=== PATIENT | male | born 1955 | race Caucasian/White ===

== ENCOUNTER → 2018-08-12 08:28 | Outpatient (CLI) | payer OTHER, SELFPAY | PROVIDERS: Visit Provider Urology | DX: R97.20 Elevated prostate specific antigen [PSA] (principal) | CPT/HCPCS: 36415; 84153 ==

== ENCOUNTER → 2019-07-24 14:36 | Outpatient (CLI) | payer MEDICARE, OTHER, SELFPAY ==
[2019-07-24 15:53] LABS: Prostate Specific Antigen 3.24 ng/mL (0.10-4.00)
== END ==
PROVIDERS: Visit Provider Urology
DX: N42.31 Prostatic intraepithelial neoplasia (principal); R97.20 Elevated prostate specific antigen [PSA]; N40.1 Benign prostatic hyperplasia with lower urinary tract symptoms
CPT/HCPCS: 36415; 84153

== ENCOUNTER → 2021-06-10 09:51 | Outpatient (CLI) | payer MEDICARE, OTHER, SELFPAY ==
--- NOTE | 2021-06-10 | DI.RAD.S_ITS ---
PROCEDURE: XR CHEST 2V INDICATIONS: CHEST PAIN TECHNIQUE: 2 views of the chest were acquired. COMPARISON: [facility], , CHEST 1 VIEW, 04/20/2013, 8:11. FINDINGS: Surgical changes and devices: None. Lungs and pleura: Lungs are clear. No pleural effusions or pneumothorax. Mediastinum: Mediastinal contours are normal. Heart size is normal. Bones and chest wall: No suspicious bony abnormalities. Soft tissues appear unremarkable. IMPRESSION: No acute cardiopulmonary disease. Dictated by: Everett Waldron M.D. on 06/10/2021 at 11:55 Approved by: Everett Waldron M.D. on 06/10/2021 at 11:56
== END ==
PROVIDERS: PCP Family Medicine; Referring Provider Family Medicine; Visit Provider Family Medicine
DX: R07.9 Chest pain, unspecified (principal)
CPT/HCPCS: 71046

== ENCOUNTER → 2021-07-11 08:23 | Outpatient (CLI) | payer MEDICARE, OTHER, SELFPAY ==
[2021-07-11 12:18] LABS: COVID19 -Nasal RAPID Negative (Negative)
== END ==
PROVIDERS: PCP Family Medicine; Visit Provider Physician Assistant
DX: Z01.812 Encounter for preprocedural laboratory examination (principal); Z20.822 Contact with and (suspected) exposure to COVID-19
CPT/HCPCS: 87635; C9803

== ENCOUNTER → 2021-07-12 08:59 | Outpatient (CLI) | payer MEDICARE, OTHER, SELFPAY ==
--- NOTE | 2021-07-13 05:11 | DI.NM.S_ITS ---
PROCEDURE PERFORMED: Exercise treadmill stress and rest myocardial perfusion imaging with gating to assess ejection fraction and regional wall motion. DATE OF SERVICE: July 12, 2021 ORDERING PROVIDER: Kamron Aj MD INDICATIONS: The patient is a 66-year-old male with atypical chest discomfort. CARDIAC STRESS: The patient was able to exercise for a total of 7 minutes 31 seconds on a standard Shivam protocol suggesting average exercise capacity with an TONEY of -1%. He had a normal heart rate and blood pressure response to exercise, achieving a maximum heart rate of 150 BPM (98% of his predicted maximum). He had no chest discomfort or other anginal symptoms. His resting ECG is normal and there are no ST-segment shifts to suggest ischemia. He had no arrhythmias. At 6 minutes of exercise at a heart rate of 140 BPM, 25.9 millicuries of technetium-99m Myoview was injected and he was imaged 20 minutes later using a gated SPECT acquisition protocol. Earlier in the day while at rest, he was injected with 12.3 millicuries of technetium-99m Myoview and was imaged 20 minutes later, again using a gated SPECT acquisition protocol. FINDINGS: RAW DATA: There is fairly good myocardial tracer uptake. Lung/heart ratio is normal at 0.27 with a normal TID ratio of 1.00. QUANTITATED GATED SPECT: Post-stress ejection fraction is estimated at 68% without any focal wall motion abnormality. Resting ejection fraction is estimated at 70% with a normal resting end-diastolic volume of 104 mL. MYOCARDIAL PERFUSION IMAGING: Post-stress supine images show a normal myocardial perfusion pattern without any perfusion defects, supported by normal perfusion imaging in the prone position. The resting images show an identical perfusion pattern without any areas of improvement. IMPRESSION: 1. Normal myocardial perfusion study. 2. No evidence of myocardial ischemia or previous myocardial infarction. 3. Normal left ventricular systolic function without any focal wall motion abnormality. 4. Average exercise capacity without angina or ECG evidence of ischemia. Javier Alex - WINNIE/myles/margo doc#: [id number]/job#: [id number] dd: 07/12/2021 17:31:00 dt: 07/13/2021 04:49:00 DICTATING MD/COPIES TO: Kamron Li MD; Kamron Aj MD COPIES MNE: FABIANA;
== END ==
PROVIDERS: PCP Family Medicine; Referring Provider Family Medicine; Visit Provider Family Medicine
DX: R07.89 Other chest pain (principal)
CPT/HCPCS: 78452; 93017; A9502

== ENCOUNTER → 2021-10-10 09:10 | Outpatient (CLI) | payer MEDICARE, OTHER, SELFPAY ==
[2021-10-10 12:43] LABS: COVID19 -Nasal RAPID Negative (Negative)
== END ==
PROVIDERS: PCP Family Medicine; Visit Provider Physician Assistant
DX: Z01.812 Encounter for preprocedural laboratory examination (principal); Z20.822 Contact with and (suspected) exposure to COVID-19
CPT/HCPCS: 87635

== ENCOUNTER 2021-10-11 07:56 | Day surgery (SDC) | payer MEDICARE, OTHER, SELFPAY ==
--- NOTE | 2021-10-11 | PATH_ITS ---
[facility] Accession Number: [id number] . 01 Material submitted: . rectosigmoid junction - RECTOSIGMOID POLYP . 02 Diagnosis: Rectosigmoid Polyp: Tubular adenoma. MRV 10/13/2021 1202 Local . 02 Electronically signed: . Radha Mendez MD, Pathologist NPI- [id number] . 01 Gross description: . The specimen is received in formalin, labeled polyp rectosigmoid and consists of a 0.6 x 0.5 x 0.3 cm alfonso-pink fragment soft tissue, which is entirely submitted in cassette A1. ([id number]) /MRV 10/12/2021 1230 Local . 02 Pathologist provided ICD-10: Z12.11, K63.5 . 02 CPT . 868644 Performed at: 01 [facility] [address], [place], [place] [id number] MD Andrew Fernandes MD Phone: [phone] Performed at: [address] [facility] [address] [place], [place] [id number] MD Marguerite Cueva MD Phone: [phone]
[2021-10-11 07:34] VITALS: BP 166/92; PULSE 86; RESP 14; TEMP 36.9; O2SAT 100; BMI 23.6
[2021-10-11] MEDS: SODIUM CHLORIDE 0.9% 1,000 ML 84 ML IV (07:44)
--- NOTE | 2021-10-11 07:57 | PM.HP.1 ---
History of Present Illness History of Present Illness Date Patient Seen: 10/11/21 Time Patient Seen: 07:57 Chief complaint: SDC Narrative: Asymptomatic screening Patient History Family & Social History Social History: household members spouse Tobacco & Substance use: Smoking Status Former smoker alcohol intake never Substance Use Type does not use Meds Home Medications and Allergies Home Medications Medication Instructions Recorded Confirmed Type dutasteride 0.5 mg-tamsulosin ER 1 cap PO QDAY #0 05/21/13 10/11/21 History 0.4 mg capsule ext.release 24hr mphas (Chloe) Allergies Allergy/AdvReac Type Severity Reaction Status Date / Time No Known Drug Allergies Allergy Verified 10/11/21 07:52 Review of Systems Review of Systems ROS: Yes All systems reviewed with the patient and are negative except as otherwise documented Exam Vital Signs (past 8 hours): - 10/11/21 07:34 Temperature 98.4 F Pulse Rate 86 Respiratory Rate 14 Blood Pressure 166/92 H Pulse Oximetry 100 Oxygen Delivery Method Room Air Const General: cooperative and comfortable Orientation: alert HENMT Head: normocephalic Ears: external ears normal Nose: external nose normal Face and sinus: normal facial exam Mouth: oral mucosae normal Eyes General: appearance normal, both eyes and all related structures Neck Neck: normal visual inspection Chest Chest: normal inspection of the chest Resp Effort & Inspection: normal respiratory effort Cardio Rate: regular rate GI Inspection: normal to inspection Palpation: tender Skin General: no rashes or lesions noted and No jaundice Neuro General: patient alert and moves all extremities Cognition: normal cognition Speech: speech normal Extrem General: normal to inspection Psych Appearance: grossly normal Assessment & Plan Assessment & Plan narrative: 66-year-old indicated for colon cancer screening. Colonoscopy is planned for today. Time Spent With Patient Critical Care time: I spent a total of [] minutes of critical care time on this patient's care today; this time is exclusive of procedural time.
--- NOTE | 2021-10-11 07:59 | PM.PREOP ---
Pre-operative Note COVID-19 COVID-19 status: Negative Result date/Date tested (Pos, Neg/Pending): 10/10/21 Interval Note History & Physical reviewed/Exam performed by Physician: Yes Changes to H&P: No ASA Class (for procedural sedation): II
[2021-10-11 08:28] VITALS: BP 131/85; PULSE 83; RESP 14; TEMP 36.6; O2SAT 98
--- NOTE | 2021-10-11 08:28 | PM.OP.COLON ---
Operative Date/Time/Diagnoses Date of procedure: 10/11/21 Time of procedure: 08:28 Pre-op diagnosis: Screening Post-op diagnosis: same Procedure & Clinicians Study performed: Colonoscopy with hot snare polypectomy Same procedure as scheduled: Yes Indications: Colon cancer screening Surgeon: Conrad Varma Procedure Notes SCOAP/Timeout: Done Procedure in detail: After the risks and benefits were explained, written and verbal informed consent was obtained. The patient was brought into the procedure room and placed into the left lateral decubitus position. Please see nurse cork insulation setter sedation notes. Digital rectal examination was accomplished. The scope was introduced into the patient and advanced under direct visualization to the cecum as identified by the appendiceal orifice and ileocecal valve. The scope was slowly withdrawn to carefully examine the mucosa for any defects or lesions. Comprehensive imaging was accomplished throughout the rectum including the dentate line. The colon was decompressed, the scope was then removed from the patient who tolerated the procedure well. Bowel prep adequate Adult colonoscope Scope withdrawal time: 11 minutes Sedation minutes: 25 Complications: none Impression: Diverticulosis was scattered throughout the sigmoid. In the region of the rectosigmoid junction there was semi pedunculated 8 mm polyp removed with hot snare no other significant pathology was appreciated throughout. Endoscopic diagnosis 1. Colon polyp 2. Diverticulosis Post-procedure Recommendations: Colonoscopy in 5 years Plan for aftercare: 1. Await histopathology 2. Repeat colonoscopy 5 years Disposition: PACU
[2021-10-11 08:33] VITALS: BP 125/86; PULSE 89; RESP 15; O2SAT 100
[2021-10-11 08:37] VITALS: BP 140/92; PULSE 76; RESP 15; O2SAT 100
[2021-10-11 08:45] VITALS: BP 137/91; PULSE 74; RESP 14; TEMP 36.3; O2SAT 99
[2021-10-11 08:52] VITALS: BP 132/83; PULSE 74; RESP 14; O2SAT 100
--- NOTE | 2021-10-11 08:54 | SUR.PHASEII ---
VSS, pt verbalized understanding of d/c instructions, transported to er entrance via wheelchair in stable condition.
== END 2021-10-11 09:00 | disposition home or self-care (01) ==
PROVIDERS: PCP Family Medicine; Referring Provider Internal Medicine Gastroenterology; Visit Provider Internal Medicine Gastroenterology
PROC: 0DJD8ZZ Inspection of Lower Intestinal Tract, Via Natural or Artificial Opening Endoscopic (ICD-10-PCS; CPT 45378; principal; 2021-10-11 08:00)
DX: Z12.11 Encounter for screening for malignant neoplasm of colon (principal); K57.30 Diverticulosis of large intestine without perforation or abscess without bleeding; D12.5 Benign neoplasm of sigmoid colon
CPT/HCPCS: 45385; J2405; J2704

== ENCOUNTER → 2022-07-17 10:21 | Outpatient (CLI) | payer MEDICARE, OTHER, SELFPAY ==
--- NOTE | 2022-07-17 | DI.RAD.S_ITS ---
PROCEDURE: XR SHOULDER RT MIN 2V INDICATIONS: PAIN IN RIGHT SHOULDER TECHNIQUE: 3 views of the shoulder were acquired. COMPARISON: None. FINDINGS: Bones: Degenerative changes of the right acromioclavicular joint. No fractures or dislocations. No suspicious bony lesions. Visualized ribs appear intact. Soft tissues: No suspicious soft tissue calcifications. IMPRESSION: 1. No acute abnormality. 2. Degenerative changes of the right acromioclavicular joint. Dictated by: Laci Torres M.D. on 07/17/2022 at 12:21 Approved by: Laci Torres M.D. on 07/17/2022 at 12:22
== END ==
PROVIDERS: PCP Family Medicine; Referring Provider Family Medicine; Visit Provider Family Medicine
DX: M25.511 Pain in right shoulder (principal)
CPT/HCPCS: 73030

== ENCOUNTER → 2024-07-15 | Outpatient (CLI) | payer MEDICARE, OTHER, SELFPAY ==
--- NOTE | 2024-07-15 18:33 | DI.MRI.S_ITS ---
PROCEDURE: MR STROKE Pre- and post-contrast brain MRI, non-contrast brain MR angiogram, pre- and postcontrast neck MR angiogram INDICATIONS: ATAXIA TECHNIQUE: Brain: Noncontrast axial T1 spin echo, axial T2 fast spin echo, sagittal and axial FLAIR, coronal T2 fast spin echo, axial gradient echo, axial diffusion and ADC through the brain. After the administration of contrast, axial 3D VIBE of the cranial vasculature and brain. Brain MRA: Non-contrast 3-D time of flight MR angiogram, with multiple binrwhm-luaznsjpr-dputptabbh (MIP) reformats performed. Neck MRA: Axial and sagittal TruFISP through the neck. Coronal dynamic MR angiogram during administration of contrast in the arterial and venous phases, with 3-dimenstional dqriffm-kwnndbvsi-kfcseorztf (MIP) reformats constructed from subtraction images. COMPARISON: None. FINDINGS: Image quality: Excellent. BRAIN: CSF spaces: Ventricles are symmetric, yet prominent in size.. Basal cisterns are patent. No extra-axial fluid collections. Brain: No intracranial bleeds or mass effects. Summers-white matter interface is normal. Diffusion weighted images show no acute infarct. Brainstem appears normal. Normal intravascular flow voids are present. No abnormal intracranial enhancement. Skull and face: Calvarial marrow signal is normal. Orbits appear normal. Sinuses: There is a mucous retention cyst seen within the left maxillary sinus. Cvkt-zu-awgsuecu scattered mucosal thickening can be seen within the paranasal sinuses. No abnormal fluid is seen within the mastoid air cells. BRAIN MR ANGIOGRAM: Anterior circulation: Intracranial internal carotid arteries are normal in size and flow. There is a hypoplastic right A1 segment, with a corresponding robust left A1 segment. This is considered to be a normal developmental variant of the [place], of typically no clinical consequence. The flow within the paired anterior cerebral arteries is otherwise normal and symmetric. The flow within the middle cerebral arteries is normal and symmetric. The anterior communicating artery is seen. No aneurysms are seen. Posterior circulation: Note is made of bilateral type origins of the posterior cerebral arteries, with an associated diminutive basilar artery. The flow within the posterior cerebral arteries is normal and symmetric. The distal vertebral arteries are overall small in size, yet otherwise unremarkable. No aneurysms are seen. NECK MR ANGIOGRAM: Carotids: Incidental note is made of a common origin of the right brachiocephalic artery and the left common carotid artery (bovine type arch). This is considered to be a developmental variant of no clinical consequence. The origins of the common carotid arteries appear patent. The calibers and courses of both common carotid arteries are normal. The bifurcation regions appear normal bilaterally. The internal carotid arteries demonstrate normal course. The internal carotid arteries demonstrate tortuosity. Posterior circulation: The origins of the vertebral arteries appear patent. More superior portions of both vertebral arteries demonstrate normal course and caliber, and join to form a normal appearing basilar artery. Miscellaneous: Subclavian arteries appear patent. Pre-contrast images through the neck show no soft tissue abnormalities. IMPRESSION: BRAIN MRI: Prominent lateral ventricles are seen, which are larger than would be expected, given the degree of sulcal atrophy. Please consider normal pressure hydrocephalus. No masses or abnormal enhancement can be seen. No findings of acute or subacute infarction can be seen. No prior territorial infarct can be seen. BRAIN MR ANGIOGRAM: No significant intracranial arterial abnormality is seen. Ibseoo-oj-Mgznmu developmental anomalies are incidentally noted. NECK MR ANGIOGRAM: Within the arteries of the neck, no hemodynamically significant stenosis can be seen. Note is made of tortuosity of the internal carotid arteries. Bowing type aortic arch branching pattern incidentally noted. Dictated by: William Mondragon M.D. on 07/16/2024 at 9:36 Approved by: William Mondragon M.D. on 07/16/2024 at 9:40
== END ==
LOC: MRI 18:32
PROVIDERS: PCP Family Medicine; Referring Provider Family Medicine; Visit Provider Family Medicine
DX: R27.0 Ataxia, unspecified (principal)
CPT/HCPCS: 70544; 70549; 70553; A9579

== ENCOUNTER → 2024-10-08 07:53 | Outpatient (CLI) | payer MEDICARE, OTHER, SELFPAY ==
--- NOTE | 2024-10-08 | DI.RAD.S_ITS ---
PROCEDURE: XR CHEST 2V INDICATIONS: Subacute cough TECHNIQUE: 2 views of the chest were acquired. COMPARISON: [facility], CR, XR CHEST 2V, 06/10/2021, 9:49. FINDINGS: Surgical changes and devices: None. Lungs and pleura: Coarsened central bronchovascular markings without alveolar infiltrate. Mediastinum: Mediastinal contours are normal. Heart size is normal. Bones and chest wall: No suspicious bony abnormalities. Soft tissues appear unremarkable. IMPRESSION: Probable bronchitis. No focal infiltrate. Approved by: Asad Hernandez M.D. on 10/08/2024 at 20:04
== END ==
PROVIDERS: PCP Family Medicine; Referring Provider Family Medicine; Visit Provider Family Medicine
DX: R05.2 Subacute cough (principal)
CPT/HCPCS: 71046

== ENCOUNTER → 2024-11-24 10:23 | Outpatient (CLI) | payer MEDICARE, OTHER, SELFPAY ==
--- NOTE | 2024-11-24 10:25 | DI.RAD.S_ITS ---
PROCEDURE: XR CHEST 2V INDICATIONS: COUGH TECHNIQUE: 2 views of the chest were acquired. COMPARISON: [facility], CR, XR CHEST 2V, 10/08/2024, 8:15. [facility], CR, XR CHEST 2V, 06/10/2021, 9:49. FINDINGS: Surgical changes and devices: None. Lungs and pleura: Re-identified diffuse, chronic reticulated opacification throughout the lung parenchyma, mildly increased when compared to 06/10/2021. No focal lung consolidation. No pleural effusions or pneumothorax. Mediastinum: Mediastinal contours are normal. Heart size is normal. Bones and chest wall: No suspicious bony abnormalities. Soft tissues appear unremarkable. IMPRESSION: Mildly increased diffuse reticulation throughout the lung parenchyma, which may represent emphysema or fibrosis. No acute cardiothoracic process. Dictated by: Osmin Varghese M.D. on 11/24/2024 at 15:09 Approved by: Osmin Varghese M.D. on 11/24/2024 at 15:11
== END ==
LOC: RAD 10:24
PROVIDERS: PCP Family Medicine; Referring Provider Family Medicine; Visit Provider Family Medicine
DX: R05.2 Subacute cough (principal)
CPT/HCPCS: 71046

== ENCOUNTER → 2024-12-07 10:31 | Outpatient (CLI) | payer MEDICARE, OTHER, SELFPAY ==
--- NOTE | 2024-12-07 | DI.CT.S_ITS ---
PROCEDURE: CT CHEST W CON INDICATIONS: CHRONIC COUGH TECHNIQUE: After the administration of intravenous contrast, 5 mm thick sections acquired from the pulmonary apices to the posterior costophrenic angles. 1 mm axial lung, 5 mm thick coronal and sagittal reformats and 7 mm axial MIP were acquired. For radiation dose reduction, the following was used: automated exposure control, adjustment of mA and/or kV according to patient size. COMPARISON: [facility], CR, XR CHEST 2V, 10/08/2024, 8:15. [facility], CR, XR CHEST 2V, 06/10/2021, 9:49. FINDINGS: Image quality: Diagnostic. Thyroid: Within normal limits. Cardiac: Heart size within normal limits. No pericardial effusion. Moderate left coronary artery calcifications. Aorta: Thoracic aortic diameter within normal limits. Pulmonary Artery: Main pulmonary artery diameter within normal limits. Lungs: No focal lung consolidation. 4 mm subpleural, triangular solid opacity in the medial segment of the right middle lobe (3/199), 5 mm opacity in the left lung base (3/267) and 6 mm triangular opacity in the lingula (3/204), likely representing intrapulmonary lymph nodes. Mild smooth interlobular septal thickening involving the right middle lobe abutting the fissure (3/199), which is a nonspecific finding. Pleura: No pneumothorax or pleural effusion. Airways: The trachea and mainstem bronchi are patent. Diffuse, mild bronchiectasis and bronchiolectasis without a predominant distribution. Lymph Nodes: No mediastinal, hilar, or axillary lymphadenopathy by size criteria. Multiple nonenlarged mediastinal nodes (2/41). Esophagus: Small hiatal hernia. Bones: No acute osseous abnormality. Upper Abdomen: Left hepatic lobe 1.4 cm simple cyst (2/82). IMPRESSION: 1. Predominant finding of diffuse, mild bronchiectasis and bronchiolectasis with scattered smooth interlobular septal thickening involving the right middle lobe. Consider a chronic inhalational irritant as a possible etiology. 2. 4-6 mm triangular pulmonary opacities, likely representing intrapulmonary lymph nodes. If this patient has high risk factors such as smoking, an optional CT chest without contrast follow-up in 12 months would be recommended. 3. Moderate left coronary calcifications. Dictated by: Osmin Varghese M.D. on 12/07/2024 at 20:47 Approved by: Osmin Varghese M.D. on 12/07/2024 at 20:57
== END ==
PROVIDERS: PCP Family Medicine; Referring Provider Family Medicine; Visit Provider Family Medicine
DX: J47.9 Bronchiectasis, uncomplicated (principal); R05.3 Chronic cough; I25.10 Atherosclerotic heart disease of native coronary artery without angina pectoris
CPT/HCPCS: 71260; Q9967

== ENCOUNTER → 2025-06-11 13:19 | Outpatient (CLI) | payer MEDICARE, OTHER, SELFPAY ==
--- NOTE | 2025-06-11 13:20 | DI.US.S_ITS ---
PROCEDURE: US RENAL COMPLETE INDICATIONS: ACUTE RENAL FAILURE TECHNIQUE: Real-time scanning was performed of the kidneys and bladder, with image documentation. COMPARISON: [facility], CT, CT CHEST W [facility], 12/07/2024, 10:39. FINDINGS: Kidneys: Kidneys are normal in size. Right kidney measures 10 cm long; left kidney measures 10 cm long. Right renal cortical thickness is 1.7 cm; left renal cortical thickness is 1.6 cm. Renal cortical echotexture is increased. A few bilateral punctate nonobstructing nephrolithiasis versus increased medullary echogenicity . No suspicious solid mass lesions. Bladder: Pre-void bladder volume is 126 mL. Post-void residual is 61 mL. Pre- void images demonstrate no intraluminal masses or stones. On pre-void images, the right ureteral jets are noted with color Doppler interrogation. (Of note, ureteral jets may not be detectable in up to 25% of cases due to insufficient differences in specific gravity between ureteral and bladder urine). Miscellaneous: No free pelvic fluid. Prostate is enlarged. IMPRESSION: Increased renal cortical echogenicity, consistent with chronic parenchymal disease. Suspected nonobstructing bilateral nephrolithiasis. Borderline elevated postvoid residual 61 mL. Prostatomegaly. Dictated by: Bobo Emery M.D. on 06/11/2025 at 15:55 Approved by: Bobo Emery M.D. on 06/11/2025 at 15:56
== END ==
PROVIDERS: PCP Family Medicine; Referring Provider Family Medicine; Visit Provider Family Medicine
DX: N17.9 Acute kidney failure, unspecified (principal); N40.0 Benign prostatic hyperplasia without lower urinary tract symptoms
CPT/HCPCS: 76770

== ENCOUNTER → 2025-08-07 10:00 | Outpatient (CLI) | payer MEDICARE, OTHER, SELFPAY ==
[2025-08-07 10:36] LABS: Appearance Urine UA CLEAR; Bilirubin Urine UA NEGATIVE (NEGATIVE); Color Urine UA YELLOW; Glucose Urine UA NEGATIVE (Negative); Ketones Urine UA NEGATIVE (NEGATIVE); Leukocyte Esterase Urine UA NEGATIVE (NEGATIVE); Nitrite Urine UA NEGATIVE (Negative); Occult Blood Urine UA TRACE-INTACT (Negative); Protein Urine UA TRACE (Negative); Specific Gravity Urine UA 1.025 (1.000-1.035); Urobilinogen Urine UA 0.2 E.U./dL (0.2); pH Urine UA 5.5 (4.5-8.0)
[2025-08-07 10:45] LABS: Culture Indicated Urine Cult Not Indicated
[2025-08-07 11:07] LABS: Protein (Total) Urine Random 26 mg/dL (0-12); Protein Creatinine Ratio Urine 0.31 GRAM/24H
[2025-08-07 11:12] LABS: Microalbumi Creatinin Ratio Ur 27.0 ug/mg CR (<30)
[2025-08-07 11:13] LABS: Hematocrit 34.5 % (41-53); Hemoglobin 11.7 g/dL (13.5-17.5)
[2025-08-07 11:35] LABS: Blood Urea Nitrogen 47 mg/dL (9-20); Calcium 8.9 mg/dL (8.4-10.2); Carbon Dioxide 20 mmol/L (22-32); Chloride 109 mmol/L (98-107); Estimated Glomerular Filt Rate 24 mL/min (>60); Glucose 82 mg/dL (70-99); HEMOLYSIS < 15 (0-50); Potassium 4.7 mmol/L (3.4-5.1); Sodium 139 mmol/L (137-145)
[2025-08-08 09:12] LABS: Chloride, Urine 129 mmol/L (Not Estab.)
== END ==
PROVIDERS: PCP Family Medicine; Referring Provider Internal Medicine Nephrology; Visit Provider Internal Medicine Nephrology
DX: N17.9 Acute kidney failure, unspecified (principal)
CPT/HCPCS: 36415; 80048; 81001; 82043; 82436; 82570; 84156; 84300; 85014; 85018

== ENCOUNTER 2025-09-18 11:05 | Emergency (ER) | payer MEDICARE, OTHER, SELFPAY ==
[2025-09-18] VITALS (11 sets, daily range): BP systolic 146–169; BP diastolic 76–96; PULSE 70–96; RESP 15–24; TEMP 36.8; O2SAT 98–100; BMI 21.8
--- NOTE | 2025-09-18 11:19 | EKG_ITS ---
[address] [address] [address] [address] Test Date: 2025-09-18 Pat Name: Javier Alex Department: Room: Gender: Male [employer] Super[employer]: MOON : 1955 Requested By: Order Number: [id number] Reading MD: Von Owen MD Measurements Intervals [place] Rate: 94 P: 47 [place]: 162 QRS: -16 QRSD: 78 T: 40 QT: 346 QTc: 432 Interpretive Statements Normal sinus rhythm Inferior infarct , age undetermined Electronically Signed On 09-18-2025 12:03:28 PDT by Von Owen MD
--- NOTE | 2025-09-18 11:19 | DI.CT.S_ITS ---
PROCEDURE: CT STROKE INDICATIONS: acute alteration TECHNIQUE: Noncontrast 4.5 mm thick angled axial sections acquired from the foramen magnum to the vertex, with coronal reformats. For radiation dose reduction, the following was used: automated exposure control, adjustment of mA and/or kV according to patient size. COMPARISON: None. FINDINGS: Image quality: Diagnostic. CSF spaces: Basal cisterns are patent. No extra-axial fluid collections. The ventricles are symmetric in size and shape. Brain: No intracranial bleeds or mass effect. There is cerebral volume loss, with resultant ventricular and sulcal prominence. There are periventricular and deep white matter chronic small vessel ischemic changes. There is intracranial internal carotid artery atherosclerosis. Skull and face: Calvarium and visualized facial bones appear intact, without suspicious lesions. Sinuses: Mucous retention cyst in the floor of the left maxillary sinus. Otherwise the paranasal sinuses and mastoids are clear. IMPRESSION: No acute intracranial pathology. Communication: The above findings were discussed with the ordering clinician, Dr. Gtz, by Dr. Rodriguez via telephone on 09/18/2025 at 11:40 am PDT. This study fulfills neurological imaging criteria for inclusion or exclusion of acute stroke therapies based on available published neurological guidelines. Dictated by: Santiago Rodriguez M.D. on 09/18/2025 at 11:37 Approved by: Santiago Rodriguez M.D. on 09/18/2025 at 11:40
--- NOTE | 2025-09-18 11:19 | DI.CT.S_ITS ---
PROCEDURE: CT ANGIO HEAD AND NECK INDICATIONS: acute alteration TECHNIQUE: After the administration of intravenous contrast, 1 mm thick sections acquired from the aortic arch through the [place]. 3-dimensional dnobfqq-kknokkalf-xhhcjfbhkc (MIP) and/or volume rendering reformats were acquired of the central intracranial vasculature and neck separately. For radiation dose reduction, the following was used: automated exposure control, adjustment of mA and/or kV according to patient size. COMPARISON:[facility], , MR STROKE, 07/15/2024, 18:44. CT. Same-day non contrasted head. FINDINGS: Image quality: Diagnostic. Cerebral CT Angiogram: Internal carotid arteries: No acute findings. Tortuous bilateral C1 internal carotid arteries. Intracranial ICA are patent with no significant stenosis. No occlusion. No aneurysm. Anterior cerebral arteries: Right aberrant anterior cerebral artery arising from the left A1 anterior cerebral artery, a normal variant. No significant stenosis. No occlusion. No aneurysm. Middle cerebral arteries: Unremarkable. No significant stenosis. No occlusion. No aneurysm. Posterior cerebral arteries: Unremarkable. No significant stenosis. No occlusion. No aneurysm. Basilar artery: Unremarkable. No significant stenosis. No occlusion. No aneurysm. Vertebral arteries: Unremarkable as visualized. Dural venous sinuses: Unremarkable given phase of enhancement. Other: Arterial phase appearance of the brain parenchyma is unremarkable. Moderate chronic generalized volume loss with moderate supratentorial microvascular ischemic change. Neck CT Angiogram: Internal carotid arteries: Unremarkable. No significant stenosis. No dissection or occlusion. Common carotid arteries: Unremarkable. No significant stenosis. No dissection or occlusion. External carotid arteries: Unremarkable. No occlusion. Vertebral arteries: Unremarkable. No significant stenosis. No dissection or occlusion. Aortic Arch and Mediastinum: Partially visualized aortic arch unremarkable without evidence of aneurysm. Origins of the great vessels unremarkable. Other: Degenerative disc disease of C3-4 through C6-7 wich results in mild spinal canal stenosis at these levels. Otherwise, the arterial phase soft tissues of the neck and chest are unremarkable. IMPRESSION: No significant intracranial arterial abnormality is seen. No significant abnormality is seen within the arteries of the neck. Communication: The above findings were discussed with the ordering clinician, Dr. Gtz, by Dr. Rodriguez via telephone on 09/18/2025 at 11:44 a.m. PDT. Any quantitative measurements of stenosis were performed using NASCET criteria. Dictated by: Santiago Rodriguez M.D. on 09/18/2025 at 11:40 Approved by: Santiago Rodriguez M.D. on 09/18/2025 at 11:45
--- NOTE | 2025-09-18 11:21 | ED.NEUROSD ---
HPI - Neuro Symptoms/Deficit General Chief Complaint: Neuro Symptoms/Deficit Stated Complaint: Confused Time Seen by Provider: 09/18/25 11:09 Source: patient and family Mode of arrival: Ambulatory History of Present Illness HPI Narrative: 70-year-old gentleman with a history of hypothyroidism, BPH who at 10:10 a.m. this morning suddenly became unresponsive according to his . He had been normal, had breakfast and then simply was sitting with a flat stair, would not respond more irritable than usual when she asked if she should call 911 he said yes which she felt was very unusual. No fevers, cough, chills. Aside for the acutely altered mental status neurologic exam is unremarkable. Code stroke was called On Anticoagulants: No Related Data Home Medications ?Medication ?Instructions ?Recorded ?Confirmed finasteride 5 mg tablet 5 mg PO DAILY 09/14/23 07/31/25 ferrous sulfate PO 06/12/25 07/31/25 levothyroxine 25 mcg tablet 25 mcg PO DAILY 06/12/25 07/31/25 prednisone 20 mg tablet 20 mg PO DAILY 06/12/25 07/31/25 tamsulosin 0.4 mg capsule 0.8 mg PO DAILY 07/09/25 07/31/25 Allergies Allergy/AdvReac Type Severity Reaction Status Date / Time No Known Drug Allergies Allergy Verified 09/18/25 11:16 Review of Systems Review of Systems Narrative: Pertinent positive and negative findings as per HPI Hematologic/Lymphatic On Anticoagulants: No Patient History Medical History BPH (benign prostatic hyperplasia) CKD (chronic kidney disease) stage 4, GFR 15-29 ml/min Elevated PSA Social History household members: spouse Smoking Status: Never smoker alcohol intake: never Smoking Status: Never smoker Exam Initial Vital Signs Initial Vital Signs: Vital Signs Temperature 98.3 F 09/18/25 11:16 Pulse Rate 96 H 09/18/25 11:16 Respiratory Rate 18 09/18/25 11:16 Blood Pressure 155/81 H 09/18/25 11:16 Pulse Oximetry 99 09/18/25 11:16 Oxygen Delivery Method Room Air 09/18/25 11:16 General: Healthy appearing, in no acute distress. Well-nourished well-developed HEENT: Moist mucous membranes, normal sclera with reactive pupils, Respiratory: Lungs are clear to auscultation, no wheezing no rales no rhonchi. Full and symmetrical air movement Cardiac: Regular rate and rhythm no murmurs no bruits Abdomen: Soft, nontender, no rebound or guarding, no flank pain Skin: Warm and dry, no rashes Neurologic: Grossly neurologically intact with no obvious asymmetries or abnormalities beyond the slight confusion and slight retrograde amnesia Extremities: No trauma, well perfused Psych: Flat affect, appears slightly confused but he is cooperative Course Orders Ordered: ED Orders 09/18/25 11:15 Complete Blood Count AUTO DIFF Stat Comprehensive Metabolic Panel Stat Ethanol (ETOH) Stat PTT Partial Thromboplastin Goyo Stat Prothrombin Time INR Stat Troponin & CK Cardiac Panel Stat 09/18/25 11:[address] angio head and neck Stat EKG-12 Lead Stat 09/18/25 12:23 Urinalysis and Microscopic Stat Urine Drug Screen, Rapid Stat Vital Signs Vital signs: Vital Signs - 8 hr 09/18/25 11:16 09/18/25 11:41 09/18/25 12:00 Temperature 98.3 F Pulse Rate 96 H 89 90 Respiratory Rate 18 20 18 Blood Pressure 155/81 H Pulse Oximetry 99 98 99 Oxygen Delivery Method Room Air 09/18/25 12:00 09/18/25 12:25 09/18/25 12:25 Temperature Pulse Rate 85 Respiratory Rate 16 Blood Pressure 148/81 H 162/86 H Pulse Oximetry 98 Oxygen Delivery Method 09/18/25 12:30 09/18/25 12:30 09/18/25 13:00 Temperature Pulse Rate 82 80 Respiratory Rate 22 22 Blood Pressure 148/81 H Pulse Oximetry 98 Oxygen Delivery Method 09/18/25 13:00 Temperature Pulse Rate Respiratory Rate Blood Pressure 146/82 H Pulse Oximetry Oxygen Delivery Method MDM - Neuro Symptoms/Deficit Lab Data 09/18/25 11:15 09/18/25 11:15 Labs: Lab Results 09/18/25 09/18/25 09/18/25 Range/Units 11:14 11:15 12:23 WBC 6.5 (4.5-11.0) X10^3/uL RBC 3.62 L (4.5-5.9) X10^6/uL Hgb 11.6 L (13.5-17.5) g/dL Hct 34.4 L (41-53) % MCV 95.2 (80-100) fL MCH 32.0 (26-34) PG MCHC 33.6 (30-36) % RDW 14.1 (11.6-14.8) % Plt Count 338 (150-400) X10^3/uL Neut % (Auto) 64.1 (50-75) % Lymph % (Auto) 22.0 L (25-40) % [place] % (Auto) 8.4 (3-14) % Eos % (Auto) 4.6 H (2-4) % Baso % (Auto) 0.9 (0-2) % Neut # (Auto) 4200 (4045-6911) /uL Lymph # (Auto) 1400 (0709-7375) /uL [place] # (Auto) 500 (0-900) /uL Eos # (Auto) 300 (0-450) /uL Baso # (Auto) 100 (0-100) /uL PT 10.8 (9.4-12.5) SECONDS INR 1.0 (0.9-1.3) APTT 29 (25.1-36.5) SECONDS Sodium 137 (137-145) mmol/L Potassium 4.4 (3.4-5.1) mmol/L Chloride 107 (98-107) mmol/L Carbon Dioxide 23 (22-32) mmol/L BUN 38 H (9-20) mg/dL Creatinine 2.62 H (0.66-1.25) mg/dL Estimated GFR 25 L (>60) mL/min BUN/Creatinine Ratio 14.5 (6-22) Glucose 113 H (70-99) mg/dL POC Whole Bld Glucose 112 H (70-99) mg/dL Calcium 8.5 (8.4-10.2) mg/dL Total Bilirubin 0.3 (0.2-1.3) mg/dL AST 28 (17-59) IU/L ALT 20 (<50) IU/L Alkaline Phosphatase 75 (38-126) U/L Total Creatine Kinase 43 L (55-170) U/L Troponin I < 0.012 (0.01-0.034) ng/mL Total Protein 8.7 H (6.3-8.2) g/dL Albumin 3.8 (3.5-5.0) g/dL Globulin 4.9 H (1.7-4.1) g/dL Albumin/Globulin Ratio 0.8 L (1.0-2.8) Urine Color Yellow Urine Appearance Clear Urine pH 5.0 (4.5-8.0) Ur Specific [place] 1.025 (1.000-1.035) Urine Protein Negative (Negative) Urine Glucose (UA) Negative (Negative) g/dL Urine Ketones Negative (NEGATIVE) Urine Occult Blood Negative (Negative) Urine Nitrate Negative (Negative) Urine Bilirubin Negative (NEGATIVE) Urine Urobilinogen 0.2 (0.2) E.U./dL Ur Leukocyte Esterase Negative (NEGATIVE) Urine RBC None seen (0-5/HPF) Urine WBC None seen (0-5/HPF) Ur Squamous Epith Cells None seen (0-5/HPF) Urine Bacteria None seen (None) Ur Culture Indicated? Cult not indicated Vol Urine Centrifuged 10ml (spun) U Opiates 300ng/mL cut Negative (Negative) Ur Oxycodone Screen Negative (Negative) Urine Methadone Screen Negative (Negative) Ur Barbiturates Screen Negative (Negative) U Tricyclic Antidepress Negative (Negative) Ur Phencyclidine Scrn Negative (Negative) Ur Amphetamines Screen Negative (Negative) U Methamphetamines Scrn Negative (Negative) Ur MDMA Scrn (Ecstasy) Negative (Negative) U Benzodiazepines Scrn Negative (Negative) Urine Cocaine Screen Negative (Negative) U Marijuana (THC) Screen Negative (Negative) Urine Specific [place] (Normal) Ethyl Alcohol < 10 (<10) mg/dL Ur Creatinine (Normal) 10/24/25 Range/Units 12:23 WBC (4.5-11.0) X10^3/uL RBC (4.5-5.9) X10^6/uL Hgb (13.5-17.5) g/dL Hct (41-53) % MCV (80-100) fL MCH (26-34) PG MCHC (30-36) % RDW (11.6-14.8) % Plt Count (150-400) X10^3/uL Neut % (Auto) (50-75) % Lymph % (Auto) (25-40) % [place] % (Auto) (3-14) % Eos % (Auto) (2-4) % Baso % (Auto) (0-2) % Neut # (Auto) (1062-0787) /uL Lymph # (Auto) (1748-7914) /uL [place] # (Auto) (0-900) /uL Eos # (Auto) (0-450) /uL Baso # (Auto) (0-100) /uL PT (9.4-12.5) SECONDS INR (0.9-1.3) APTT (25.1-36.5) SECONDS Sodium (137-145) mmol/L Potassium (3.4-5.1) mmol/L Chloride (98-107) mmol/L Carbon Dioxide (22-32) mmol/L BUN (9-20) mg/dL Creatinine (0.66-1.25) mg/dL Estimated GFR (>60) mL/min BUN/Creatinine Ratio (6-22) Glucose (70-99) mg/dL POC Whole Bld Glucose (70-99) mg/dL Calcium (8.4-10.2) mg/dL Total Bilirubin (0.2-1.3) mg/dL AST (17-59) IU/L ALT (<50) IU/L Alkaline Phosphatase (38-126) U/L Total Creatine Kinase (55-170) U/L Troponin I (0.01-0.034) ng/mL Total Protein (6.3-8.2) g/dL Albumin (3.5-5.0) g/dL Globulin (1.7-4.1) g/dL Albumin/Globulin Ratio (1.0-2.8) Urine Color Urine Appearance Urine pH Normal (4.5-8.0) Ur Specific [place] (1.000-1.035) Urine Protein (Negative) Urine Glucose (UA) (Negative) g/dL Urine Ketones (NEGATIVE) Urine Occult Blood (Negative) Urine Nitrate (Negative) Urine Bilirubin (NEGATIVE) Urine Urobilinogen (0.2) E.U./dL Ur Leukocyte Esterase (NEGATIVE) Urine RBC (0-5/HPF) Urine WBC (0-5/HPF) Ur Squamous Epith Cells (0-5/HPF) Urine Bacteria (None) Ur Culture Indicated? Vol Urine Centrifuged U Opiates 300ng/mL cut (Negative) Ur Oxycodone Screen (Negative) Urine Methadone Screen (Negative) Ur Barbiturates Screen (Negative) U Tricyclic Antidepress (Negative) Ur Phencyclidine Scrn (Negative) Ur Amphetamines Screen (Negative) U Methamphetamines Scrn (Negative) Ur MDMA Scrn (Ecstasy) (Negative) U Benzodiazepines Scrn (Negative) Urine Cocaine Screen (Negative) U Marijuana (THC) Screen (Negative) Urine Specific [place] Normal (Normal) Ethyl Alcohol (<10) mg/dL Ur Creatinine Normal (Normal) Point of Care Testing Glucose POC 110 MDM Narrative Medical decision making narrative: CC: Acute confusion Complicating co-morbidities: Hypothyroidism, BPH Data collected from: , son Medical records reviewed: Nephrology consult from August 20 reviewed Differential considered: Transient global amnesia, stroke, intracranial mass tumor or bleed, infection Exam documented above, pertinent findings include: Aside from the mild confusion exam is completely benign Lab Test results independently reviewed as above. Pertinent findings: CBC shows mild stable anemia only Chemistries show chronically elevated creatinine at 2.6 without other significant abnormalities Troponin is undetectable Urine does not look infected Toxicology screen is normal Independently reviewed EKG: Sinus rhythm at a rate of 94, no acute ischemic changes Imaging studies independently reviewed: Brain CT shows no acute findings CT angiogram shows no acute findings Consultations: Discussion with stroke neurology at . asa daily, consider out patient MRI, EEG, echo Treatments: asa Re-evaluations: 230pm patient is re-evaluated and seems to be back to his baseline according to both he and his . He recognizes that after going grocery shopping this morning he simply had a blank episode and still does not have complete recollection of the earlier timeframe. Discussion: 70-year-old gentleman with acute episode of memory loss without other neurologic findings. Lasted approximately 4-1/2 hours and he seems to be back at his baseline. CT and CT angiogram of the brain at this point seem normal. Care is discussed with stroke neurology regarding workup. Her recommendation given his lack of other medical problems was aspirin daily an outpatient follow up with consideration of MRI, EEG and cardiac echo. She did not think that hospitalization would be required. In discussing care and plan with patient and his they definitely would prefer discharge home. I think this is a safe plan and he will be discharged. Discharge Plan Departure Patient Disposition: Home Clinical Impression: Amnesia, global, transient Instructions: DI for Transient Global Amnesia Activity Restrictions/Additional Instructions: Thank you for coming in today We did full workup looking for acute stroke or blood clots leading anterior brain. Your brain itself and all of the blood vessels up to your brain look very healthy. There was no evidence of tumors, masses or obvious stroke. I did talk with our stroke specialist at [facility] and reviewed the imaging studies with her. Transient global amnesia is an odd entity and there is not a definitive recommendation for workup or treatment. Her recommendation was a full aspirin daily as we would do with somebody who has had a TIA. She also recommended as an outpatient, MRI of the brain without contrast, an EEG looking for possibility of seizure as well as an echocardiogram to make sure there are no rhythm or structural abnormalities with your heart that might have contributed. At this time is safe for you to go home. Please do schedule follow up appointment with your primary care physician to schedule the study suggested above. If you find that you are having returned symptoms or new findings please return to the emergency department immediately Prescriptions: No Action finasteride 5 mg tablet 5 mg PO DAILY levothyroxine 25 mcg tablet 25 mcg PO DAILY ferrous sulfate PO prednisone 20 mg tablet 20 mg PO DAILY tamsulosin 0.4 mg capsule 0.8 mg PO DAILY Referrals: Kamron Aj MD [Primary Care Provider, [facility]] Stand Alone Forms: Patient Portal/API
[2025-09-18 11:25] LABS: Add Manual Diff / Slide Review NO; Hematocrit 34.4 % (41-53); Hemoglobin 11.6 g/dL (13.5-17.5); Lymphocytes Absolute Auto 1400 /uL (1100-4500); Mean Corpuscular HGB Conc 33.6 % (30-36); Mean Corpuscular Hemoglobin 32.0 PG (26-34); Mean Corpuscular Volume 95.2 fL (80-100); Platelet Count 338 X10^3/uL (150-400)
[2025-09-18 11:32] LABS: INR 1.0 (0.9-1.3); Prothrombin Time 10.8 SECONDS (9.4-12.5)
[2025-09-18 11:35] LABS: PTT Partial Thromboplastin Tim 29 SECONDS (25.1-36.5)
[2025-09-18 11:37] LABS: Alanine Aminotransferase 20 IU/L (<50); Albumin 3.8 g/dL (3.5-5.0); Albumin Globulin Ratio 0.8 (1.0-2.8); Alkaline Phosphatase 75 U/L (38-126); Blood Urea Nitrogen 38 mg/dL (9-20); Calcium 8.5 mg/dL (8.4-10.2); Carbon Dioxide 23 mmol/L (22-32); Chloride 107 mmol/L (98-107); Creatine Kinase 43 U/L (55-170); Estimated Glomerular Filt Rate 25 mL/min (>60); Ethanol (ETOH) < 10 mg/dL (<10); Globulin 4.9 g/dL (1.7-4.1); Glucose 113 mg/dL (70-99); HEMOLYSIS < 15 (0-50); Potassium 4.4 mmol/L (3.4-5.1); Sodium 137 mmol/L (137-145); Total Protein 8.7 g/dL (6.3-8.2)
[2025-09-18 11:48] LABS: Troponin I < 0.012 ng/mL (0.01-0.034)
--- NOTE | 2025-09-18 11:59 | PC.NURSE ---
LKW 10am with family in kitchen, had aphasia and staring into space called 911. Stroke alert. glucose WNL. NIH 1 for answering month incorrectly. cafe associate 2+ with R > L.
[2025-09-18 12:30] LABS: UR Morphine/Opiate cutoff 300 Negative (Negative); Ur Specific Gravity Normal (Normal); Urine MDMA Negative (Negative); Urine Methamphetamines Negative (Negative); Urine Tetrahydrocannabinol Negative (Negative); Urine Tricyclic Antidepressant Negative (Negative)
[2025-09-18 12:34] LABS: Appearance Urine UA CLEAR; Bilirubin Urine UA NEGATIVE (NEGATIVE); Color Urine UA YELLOW; Glucose Urine UA NEGATIVE (Negative); Ketones Urine UA NEGATIVE (NEGATIVE); Leukocyte Esterase Urine UA NEGATIVE (NEGATIVE); Nitrite Urine UA NEGATIVE (Negative); Occult Blood Urine UA NEGATIVE (Negative); Protein Urine UA NEGATIVE (Negative); Specific Gravity Urine UA 1.025 (1.000-1.035); Urobilinogen Urine UA 0.2 E.U./dL (0.2); pH Urine UA 5.0 (4.5-8.0)
[2025-09-18 12:37] LABS: Culture Indicated Urine Cult Not Indicated
== END 2025-09-18 15:52 | disposition home or self-care (01) ==
PROVIDERS: Emergency Provider Emergency Medicine; PCP Family Medicine
DX: G45.4 Transient global amnesia (principal)
CPT/HCPCS: 36415; 70450; 70496; 70498; 80053; 80305; 80320; 81001; 82550; 82962; 84484; 85025; 85610; 85730; 93005; 93010; 99284; Q9967

== ENCOUNTER → 2025-09-30 07:32 | Outpatient (CLI) | payer MEDICARE, OTHER, SELFPAY ==
--- NOTE | 2025-09-30 07:36 | DI.MRI.S_ITS ---
PROCEDURE: MR STROKE
== END ==
LOC: MRI 07:33
PROVIDERS: PCP Family Medicine; Referring Provider Family Medicine; Visit Provider Family Medicine
DX: G45.9 Transient cerebral ischemic attack, unspecified (principal); J90 Pleural effusion, not elsewhere classified; I77.1 Stricture of artery
CPT/HCPCS: 70544; 70549; 70553; 93306; A9579

== ENCOUNTER → 2025-10-30 14:39 | Outpatient (CLI) | payer MEDICARE, OTHER, SELFPAY ==
[2025-10-30 15:54] LABS: Blood Urea Nitrogen 42 mg/dL (9-20); Calcium 9.0 mg/dL (8.4-10.2); Carbon Dioxide 20 mmol/L (22-32); Chloride 112 mmol/L (98-107); Estimated Glomerular Filt Rate 31 mL/min (>60); Glucose 89 mg/dL (70-99); HEMOLYSIS 44 (0-50); Potassium 4.8 mmol/L (3.4-5.1); Sodium 143 mmol/L (137-145)
== END ==
PROVIDERS: PCP Family Medicine; Referring Provider Internal Medicine Nephrology; Visit Provider Internal Medicine Nephrology
DX: N17.9 Acute kidney failure, unspecified (principal)
CPT/HCPCS: 36415; 80048